=== PATIENT | male | born 1945 | race Caucasian/White ===

== ENCOUNTER 2016-05-31 19:04 | Emergency (ER) | payer MEDICARE ==
[~2016-05-31] VITALS: Ht 180.3 cm; Wt 117.3 kg
[~2016-05-31 19:04] MED LIST: AMO250 PO; ASPI81TA2 PO; GLIM4TAB PO; METO100T PO; OMEP20CA11 PO; [UNRECOGNIZED DRUG - CODE] PO
[2016-05-31 19:10] VITALS: BP 144/88; PULSE 78; RESP 16; O2SAT 97
--- NOTE | 2016-05-31 19:50 | ED.REPORT ---
HPI-Abd Pain M 40 and Over Date of Service May 31, 2016 ED Provider: Bishnu Alegre MD This is a 70 year old male with a history of AAA and hernia repair presenting to the emergency department with bilateral lower abdominal pain that began 3 hours ago. Describes intermittent, cramping pain that seems to gradually be improving. Reports constipation with decreased flatulence, last BM yesterday evening. Denies nausea, vomiting, diarrhea, dysuria, fever, or chills. Nursing Notes Stated Complaint: ABDOMINAL PAIN Chief Complaint: Male Abdominal Pain Nursing Notes Reviewed: Yes Allergies: Coded Allergies: nitroglycerin (Verified Allergy, Severe, 05/31/16) Severe hypotension. Scheduled Amoxicillin-Expunged Drug, Do Not Renew! (Amoxicillin-Expunged Drug, Do Not Renew!) 250 Mg Capsule 250 MG PO TID Aspirin-Expunged Drug, Do Not Renew! (Aspirin-Expunged Drug, Do Not Renew!) 81 Mg Tab 81 MG PO BID Atorvastatin-Expunged Drug, Do Not Renew! (Atorvastatin-Expunged Drug, Do Not Renew!) 20 Mg Tablet 80 MG PO HS Glimepiride-Expunged Drug, Do Not Renew! (Glimepiride-Expunged Drug, Do Not Renew!) 4 Mg Tablet 4 MG PO DAILY Metoprolol Tart-Expunged Drug, Do Not Renew! (Metoprolol Tart-Expunged Drug, Do Not Renew!) 100 Mg Tablet 100 MG PO BID General Time Seen by MD: 19:49 Chief Complaint Abdominal pain Hx Obtained From: Patient Arrived By: Walk-in Sudden in Onset?: Yes Onset Occurred: 1 - 4 hours ago Symptom Duration: Since onset Location: : Abdomen lower Severity: Current: Mild Pertinent Negative: Pt denies other symptoms Recent Healthcare: No recent doctor visit, No recent hospitalization Similar Sx Previous: No Past Medical History Past Medical History Hernia Past Surgical History Bypass x3 AAA Hernia repair Reports: Cholecystectomy Ambulatory Status Independent Review of Systems Constitutional: Denies: Chills, Fever Respiratory: Denies: Non-productive cough, Shortness of breath Cardiovascular: Denies: Chest pain GI: Reports: Abdominal pain, Constipation, Denies: Diarrhea, Nausea, Vomiting Complete sys rev & neg: except as marked. Physical Exam Initial Vital Signs Vital Signs (First) Date Time Temp Pulse Resp B/P Pulse Ox O2 Delivery O2 Flow Rate FiO2 05/31/16 19:10 36.1 78 16 144/88 97 Room Air Initial VS: Reviewed Head / Eyes: Atraumatic, Normocephalic, PERRL ENT: Mucous membranes moist, Conjunctiva normal, No scleral icterus Neck: Supple, Non-tender, Full range of motion Extremities: Vascular intact, Neuro intact, No swelling, No tenderness Skin: Warm, Dry, No cyanosis Neurologic: Alert, Oriented, Nonfocal Psychiatric: Mood/affect normal, Behavior normal, Normal thought content General/Constitutional: Awake, Alert Respiratory / Chest: Breath sounds NL, Breath sounds = bilat, No respiratory distress, No rales, No rhonchi, No wheezing Cardiovascular: Heart rate NL, Regular rhythm, Heart sounds NL, Peripheral circulation NL Abdomen: Soft, Non-tender, BS normoactive Midline surgical scar across abdomen. Abdomen distended, soft. Back: Atraumatic, Inspection NL, Full range of motion Hernia: Positive: Hernia inguinal L large left inguinal hernia that is non tender and easily reducible Interpretation & Diagnostics Interpretation & Diagnostics: CT ABD PELVIS IMPRESSION: 1. Left paracentral paraumbilical ventral abdominal hernia containing a loop of small bowel with associated partial small bowel obstruction. No evidence of strangulation. 2. Large left inguinal hernia containing a segment of the sigmoid colon without associated bowel obstruction or strangulation. 3. Findings discussed with Dr. Alegre on 05/31/16 at 9:40 PM. Dictated by: Adam Crocker M.D. on 05/31/2016 at 21:36 Approved by: Adam Crocker M.D. on 05/31/2016 at 21:48 Lab Results Interpretation Result Diagram: 05/31/16 [id number] Test 05/31/16 19:45 05/31/16 19:48 05/31/16 20:05 White Blood Count 11.0th/mm3 (3.8-10.1) Red Blood Count 4.99mil/mm3 (4.40-5.80) Hemoglobin 16.0g/dL (13.8-17.2) Hematocrit 46.6% (41.0-50.0) Mean Corpuscular Volume 93.4fL (81-100) Mean Corpuscular Hemoglobin 32.1pg (27.0-35.0) Mean Corpuscular Hemoglobin Concent 34.3% (32.0-37.0) Red Cell Distribution Width 14.0% (12.3-15.4) Platelet Count 147bil/L (150-400) Neutrophils (%) (Auto) 75.7% (40-74) Lymphocytes (%) (Auto) 15.9% (14-46) Monocytes (%) (Auto) 5.7% (4-12) Eosinophils (%) (Auto) 2.0% (0-5) Basophils (%) (Auto) 0.5% (0-3) Sodium Level 141mEq/L (134-144) Potassium Level 4.3mEq/L (3.5-5.2) Chloride Level 101mEq/L (97-108) Carbon Dioxide Level 25mmol/L (18-29) Blood Urea Nitrogen 31mg/dL (8-27) Creatinine 1.68mg/dL (0.76-1.27) Estimat Glomerular Filtration Rate 43mL/min (>59) Glucose Level 183mg/dL (60-99) Calcium Level 10.3mg/dL (8.5-10.1) Magnesium Level 1.7mg/dL (1.6-2.6) Total Bilirubin 1.6mg/dL (0.0-1.2) Aspartate Amino Transf (AST/SGOT) 39U/L (0-50) Alanine Aminotransferase (ALT/SGPT) 41U/L (0-44) Alkaline Phosphatase 61U/L (25-160) Total Protein 7.9g/dL (6.4-8.4) Albumin 4.4g/dL (3.4-5.0) Lipase 31U/L (13-60) Hold Patel Top Tube Received (Received) Hold Urine Received (Received) Urine Color Yellow (YELLOW) Urine Appearance Clear (CLEAR,HAZY) Urine pH 5.5 (5.0-8.0) Urine Specific [place] 1.023 (1.003-1.035) Urine Protein Tracemg/dL (NEG,TRACE) Urine Glucose (UA) 250mg/dL (NEGATIVE) Urine Ketones Negativemg/dL (NEGATIVE) Urine Occult Blood Small (NEGATIVE) Urine Nitrite Negative (NEGATIVE) Urine Bilirubin Negative (NEGATIVE) Urine Urobilinogen Normalmg/dL (NORMAL) Urine Leukocyte Esterase Negative (NEGATIVE) Urine RBC 0-2/hpf (0-2) Urine WBC 0-5/hpf (0-5) Urine Epithelial Cells Occasional/hpf (NONE-MOD) Urine Crystals None seen (NONE SEEN) Urine Bacteria None/hpf (NONE-FEW) Urine Hyaline Casts None/lpf (NONE) Urine Granular Casts None seen (NONE SEEN) Urine Waxy Casts None seen (NONE SEEN) Urine Red Blood Cell Casts None seen (NONE SEEN) Urine White Blood Cell Casts None seen (NONE SEEN) Urine Mucus None seen (None Seen) Urine Trichomonas None seen (NONE SEEN) Urine Yeast None (NONE SEEN) Urinalysis Comment None Urine Culture Reflexed Not indicated Re-Eval/Medical Decision Time of Eval: 21:36 Re-Evaluation/Progress Note: Re-checked, discussed CT results. Time of Eval: 21:57 Re-Evaluation/Progress Note: Re-checked, pt denies pain, is passing gas, and has tolerated PO. Discussed plan for d/c, pt understands and agrees with plan, all questions addressed. Consultation : Referral / Consult Name: Adam Crocker MD Call Returned at: 21:43 Note: Radiologist - discussed CT results Counseled Regarding: Diagnosis, Lab results, Need for follow-up Discharge & Departure Primary Impression: Inguinal hernia Obstruction and gangrene presence: without obstruction or gangrene Laterality : unilateral Recurrence: not specified Qualified Code: K40.90 - Unilateral inguinal hernia, without obstruction or gangrene, not specified as recurrent Additional Impressions: Abdominal hernia Hernia type: ventral Obstruction and gangrene presence: with obstruction but without gangrene Qualified Code: K43.6 - Other and unspecified ventral hernia with obstruction, without gangrene Partial bowel obstruction Disposition: Home Vital Signs - All Vital Signs Date Time Temp Pulse Resp B/P Pulse Ox O2 Delivery O2 Flow Rate FiO2 05/31/16 22:11 36.9 73 20 119/74 94 Room Air 05/31/16 19:10 36.1 78 16 144/88 97 Room Air )( All Prior VS Reviewed: Yes Condition: Stable Patient Instructions: Ventral Hernia (ED) Additional Instructions: Emergency department evaluation today included interview, examination, lab testing, and CT scan. You had an abdominal wall hernia with partial bowel obstruction. At present symptoms have resolved so you can go home. We advise starting with a clear liquid diet and then advancing if that is tolerated. If you have recurrent symptoms of pain or nausea/vomiting, return to the ED. Consume clear liquids. Follow-up with your surgeon, call first thing tomorrow morning for further evaluation. Return to the emergency department if you develop any new or worsening symptoms. Referrals: Aman Marin MD (PCP) Scribe Attestation Portions of this note were transcribed by Nini Aguayo. I, Dr. Alegre personally performed the history, physical exam and medical decision-making; I reviewed and confirmed the accuracy of the information in the transcribed note. Signed by Mark Amaya, 05/31/2016 at 22:00. Bishnu Alegre MD May 31, 2016 19:50 NINI AGUAYO May 31, 2016 19:57
[2016-05-31] MEDS ORDERED: 0.9% Sodium Chloride 1,000 ML IV ONE (20:00)
[2016-05-31 20:03] LABS: BASOPHILS % (AUTO) 0.5 % (0-3); MONOCYTES % (AUTO) 5.7 % (4-12); Mean Corpuscular Hemoglobin 32.1 pg (27.0-35.0); Mean Corpuscular Volume 93.4 fL (81-100); NEUTROPHILS % (AUTO) 75.7 % (40-74); Platelet Count 147 bil/L (150-400)
[2016-05-31] MEDS ORDERED: Iohexol 300 mg/mL 30 mL Inj PO ONE (20:05)
[2016-05-31 20:30] LABS: Magnesium 1.7 mg/dL (1.6-2.6)
[2016-05-31 20:41] LABS: APPEARANCE,URINE CLEAR (CLEAR,HAZY); COLOR,URINE YELLOW (YELLOW); OCCULT BLOOD,URINE SMALL (NEGATIVE); PH,URINE 5.5 (5.0-8.0); UROBILINOGEN,URINE NORMAL (NORMAL)
--- NOTE | 2016-05-31 21:50 | DRSVH ---
PROCEDURE: CT ABDOMEN AND PELVIS WITH CONTRAST ([id number]) INDICATIONS: lower abdominal pain, suspect obstruction TECHNIQUE: After the administration of oral and intravenous contrast, 5 mm thick sections acquired from the diap hragms to the symphysis. 5 mm thick coronal and sagittal reformats were performed. For radiation do se reduction, the following was used: automated exposure control, adjustment of mA and/or kV accordi ng to patient size. COMPARISON: [facility], CT, ANG CHEST/ABD/PEL W/WO CONTRAST (PNL), 10/05/2013, 11:48. FINDINGS: Image quality: Excellent. ABDOMEN: Lung bases: There is mild atelectasis and scarring in the lung bases. Heart size is borderline enlar ged. Solid organs: There is hypoattenuation of the liver consistent with fatty infiltration. The spleen i s normal in size. Gallbladder is surgically absent. Biliary system is non-dilated. There is mild f atty atrophy of the pancreas. No pancreatic duct location. No adrenal nodules. Kidneys demonstrate no hydronephrosis. There are a few clustered left renal stones, measuring up to 1.1 cm within the i nterpolar region. Peritoneum and bowel: There is a left paracentral supraglottic O. ventral abdominal wall hernia cont aining a segment of small bowel. There is mild associated fluid distention of proximal small bowel l oops measuring up to 3.2 cm. There is also intraluminal fluid within more distal small bowel loops. The findings are consistent with a partial obstruction. No bowel wall thickening or fluid within th e hernia to suggest strangulation. There is also a segment of the sigmoid colon within a large left inguinal hernia without associated bowel obstruction or strangulation. There is colonic diverticulos is without acute diverticulitis. No free fluid or air. Nodes and vessels: No retroperitoneal or mesenteric adenopathy. There are postsurgical changes cons istent with prior surgical repair of abdominal aortic aneurysm. PELVIS: Genitourinary: Bladder wall thickness is normal. Miscellaneous: There are bilateral internal hernias including a large left inguinal hernia containin g a segment of the sigmoid colon as described above. No inguinal adenopathy. Bones: No suspicious bony lesions. No vertebral body compression fractures. IMPRESSION: 1. Left paracentral paraumbilical ventral abdominal hernia containing a loop of small bowel with ass ociated partial small bowel obstruction. No evidence of strangulation. 2. Large left inguinal hernia containing a segment of the sigmoid colon without associated bowel obs truction or strangulation. 3. Findings discussed with Dr. Alegre on 05/31/16 at 9:40 PM. Dictated by: Adam Crocker M.D. on 05/31/2016 at 21:36 Approved by: Adam Crocker M.D. on 05/31/2016 at 21:48
[2016-05-31 22:11] VITALS: BP 119/74; PULSE 73; RESP 20; O2SAT 94
== END 2016-05-31 22:12 | disposition home or self-care (01) ==
LOC: SED 19:04
DX: K40.90 Unilateral inguinal hernia, without obstruction or gangrene, not specified as recurrent (principal); K43.6 Other and unspecified ventral hernia with obstruction, without gangrene; Z95.1 Presence of aortocoronary bypass graft; Z88.8 Allergy status to other drugs, medicaments and biological substances
CPT/HCPCS: 36415; 74177; 80053; 81000; 83690; 83735; 85025; 93005; 96360; 99285; G0463; J7030; Q9967